=== PATIENT | female | born 1985 | race Hispanic/Latino ===

== ENCOUNTER 2017-02-06 15:37 | Emergency (ER) | payer MEDICARE, OTHER ==
[2017-02-06 15:53] VITALS: BMI 21.9
[2017-02-06 15:57] VITALS: BP 108/76; PULSE 100; RESP 19; TEMP 98; O2SAT 95
[2017-02-06] MEDS ORDERED: Amoxicillin-Clav 500-125 mg Tab PO STA (16:05)
--- NOTE | 2017-02-06 16:09 | ED PDOC ---
Arrival/HPI - General Historian: Patient - General Chief Complaint: Abnormal Skin Integrity Time Seen by Provider: 02/06/17 15:55 - History of Present Illness Narrative History of Present Illness (Text): 02/06/17 16:15 31yo female present with 3days history of scaly dry rash on her chin. States she started noticing discharge from the rash today. Denies fever, chills, contact, any other complaint. (Nuria Torres A) Past Medical History - Provider Review Nursing Documentation Reviewed: Yes - Past History Past History: No Previous - Infectious Disease Hx of Infectious Diseases: None - Tetanus Immunization Tetanus Immunization: Unknown - Cardiac Hx Cardiac Disorders: No - Pulmonary Hx Respiratory Disorders: Yes Hx Asthma: Yes (LAST HOSPITALIZED 2 YEARS AGO) - Neurological Hx Neurological Disorder: No - HEENT Hx HEENT Disorder: No - Renal Hx Renal Disorder: No - Endocrine/Metabolic Hx Endocrine Disorders: No - Hematological/Oncological Hx Blood Disorders: No - Integumentary Hx Dermatological Disorder: No - Musculoskeletal/Rheumatological Hx Musculoskeletal Disorders: No - Gastrointestinal Hx Gastrointestinal Disorders: Yes Other/Comment: Gastroparesis - Genitourinary/Gynecological Hx Genitourinary Disorders: No - Psychiatric Hx Psychophysiologic Disorder: No Hx Anxiety: Yes (NO MEDS. ) Hx Depression: No Hx Emotional Abuse: No Hx Panic Disorder: Yes (NO MEDS.) Hx Physical Abuse: No Hx Substance Use: No - Past Surgical History Past Surgical History: No Previous - Surgical History Hx Section: Yes (X2) - Anesthesia Hx Anesthesia: Yes Hx Anesthesia Reactions: No Hx Malignant Hyperthermia: No - Suicidal Assessment Feels Threatened In Home Enviroment: No Family/Social History - Physician Review Nursing Documentation Reviewed: Yes Family/Social History: Unknown Family HX Smoking Status: Light Smoker < 10 Cigarettes Daily Hx Alcohol Use: No Hx Substance Use: No Hx Substance Use Treatment: No Allergies/Home Meds Allergies/Adverse Reactions: Allergies apple Allergy (Severe, Verified 02/06/17 15:53) SWELLING OF THROAT, TONGUE ITCHES Home Medications: Home Meds Medication Instructions Recorded Confirmed Albuterol Sulfate 0.63 mg IH PRN PRN 11/14/15 02/06/17 oxyCODONE [oxyCODONE Immediate 10 mg PO PRN PRN 02/06/17 02/06/17 Release Tab] Review of Systems - Physician Review All systems were reviewed & negative as marked: Yes - Review of Systems Constitutional: Normal Eyes: Normal ENT: Normal Respiratory: Normal Cardiovascular: Normal Gastrointestinal: Normal Genitourinary Female: Normal Musculoskeletal: Normal Skin: Rash Neurological: Normal Endocrine: Normal Hemo/Lymphatic: Normal Psychiatric: Normal Physical Exam Vital Signs Reviewed: Yes Temperature: Afebrile Blood Pressure: Normal Pulse: Regular Respiratory Rate: Normal Appearance: Positive for: Well-Appearing, Non-Toxic, Comfortable Pain Distress: None Mental Status: Positive for: Alert and Oriented X 3 - Systems Exam Head: Present: Atraumatic, Normocephalic Pupils: Present: PERRL Extroacular Muscles: Present: EOMI Conjunctiva: Present: Normal Mouth: Present: Moist Mucous Membranes Neck: Present: Normal Range of Motion Respiratory/Chest: Present: Clear to Auscultation, Good Air Exchange. No: Respiratory Distress, Accessory Muscle Use Cardiovascular: Present: Regular Rate and Rhythm, Normal S1, S2. No: Murmurs Abdomen: Present: Normal Bowel Sounds. No: Tenderness, Distention, Peritoneal Signs Back: Present: Normal Inspection Upper Extremity: Present: Normal Inspection. No: Cyanosis, Edema Lower Extremity: Present: Normal Inspection. No: Edema Neurological: Present: GCS=15, CN II-XII Intact, Speech Normal Skin: Present: Warm, Dry, Normal Color, Other (honey crusted scaly patch noted overlaying erythematous base on chin). No: Rashes Psychiatric: Present: Alert, Oriented x 3, Normal Insight, Normal Concentration Medical Decision Making ED Course and Treatment: I was available for consultation during PA evaluation. The chart was reviewed by me, and I agree with disposition. The documented history was done by the physician middle school sports coach. The documented physical exam was done by the physician middle school sports coach. The documented procedures were done by the physician middle school sports coach. ( Tylor Potter) - Medication Orders Current Medication Orders: Discontinued Medications Amoxicillin/Clavulanate Potassium (Augmentin 500 Mg-125 Mg Tab) 1 tab PO STAT STA PRN Reason: Protocol Stop: 02/06/17 16:06 Disposition/Present on Arrival - Present on Arrival Any Indicators Present on Arrival: No History of DVT/PE: No History of Uncontrolled Diabetes: No Urinary Catheter: No History of Decub. Ulcer: No History Surgical Site Infection Following: None - Disposition Have Diagnosis and Disposition been Completed?: Yes Disposition Time: 16:10 Patient Plan: Discharge - Disposition Diagnosis: Impetigo Disposition: HOME/ ROUTINE Condition: FAIR Discharge Instructions (ExitCare): [place] (ED) Additional Instructions: Follow up with your private Doctor Return to ED for any new or worsening symptoms Prescriptions: Amoxicillin/Clavulanate [Augmentin 500 MG-125 MG] 1 tab PO BID #20 tab Mupirocin 2% Cream [Bactroban Cream] 30 applic EXT TID #1 tube Referrals: [facility] [place] - Follow up with primary
== END 2017-02-06 16:30 | disposition home or self-care (01) ==
LOC: ED 15:37
DX: L01.00 Impetigo, unspecified (principal)